=== PATIENT | female | born 1970 | race Caucasian/White ===

== ENCOUNTER 2020-07-29 09:10 | Emergency (ER) | payer BC ==
[~2020-07-29] VITALS: Ht 162.6 cm; Wt 108.9 kg
[2020-07-29] MEDS ORDERED: ULTRAM 50MG50 MG PO (10:55)
== END 2020-07-29 11:18 | disposition home or self-care (01) ==
LOC: FSED 10:00
DX: S52.132A Displaced fracture of neck of left radius, initial encounter for closed fracture (principal); W10.8XXA Fall (on) (from) other stairs and steps, initial encounter; Y93.01 Activity, walking, marching and hiking; G40.909 Epilepsy, unspecified, not intractable, without status epilepticus
CPT/HCPCS: 99283

== ENCOUNTER 2021-06-06 09:42 | Emergency (ER) | payer BC ==
[~2021-06-06] VITALS: Ht 162.6 cm; Wt 111.1 kg
[~2021-06-06 09:42] MED LIST: ULTRAM 50MG50 MG PO
[2021-06-06] MEDS ORDERED: TETANUS/DIPHTHERIA TOX ADULT 0.5 ML SYR ONE (11:52)
[2021-06-06] MEDS ORDERED: LIDOCAINE HCL 1% LOCAL INJ 20 ML VIAL ONE (11:52)
[2021-06-06] MEDS ORDERED: LIDOCAINE HCL 1% LOCAL INJ 20 ML VIAL INJ ONE (12:00)
[2021-06-06] MEDS ORDERED: TETANUS/DIPHTHERIA TOX ADULT 0.5 ML SYR IM ONE (12:00)
[2021-06-06] MEDS ORDERED: ONDANSETRON HCL 4 MG ORAL DISINTEGRATING TAB ONE (12:38)
[2021-06-06] MEDS ORDERED: NEOMYCIN/POLYMYX/BACITR OINT 0.9 GM PKT ONE (12:40)
[2021-06-06 13:10] VITALS: BP 149/78
== END 2021-06-06 13:13 | disposition home or self-care (01) ==
LOC: FSED 10:28
DX: S61.412A Laceration without foreign body of left hand, initial encounter (principal); R55 Syncope and collapse; W26.0XXA Contact with knife, initial encounter; Y92.008 Other place in unspecified non-institutional (private) residence as the place of occurrence of the external cause; I10 Essential (primary) hypertension; G40.909 Epilepsy, unspecified, not intractable, without status epilepticus
CPT/HCPCS: 12001; 90471; 90714; 99283; J2001; Q0162

== ENCOUNTER 2022-06-08 12:42 | Emergency (ER) | payer BC ==
[~2022-06-08] VITALS: Ht 165.1 cm; Wt 106.1 kg
[2022-06-08] MEDS ORDERED: METFORMIN HCL500 M2 PO (13:01)
[2022-06-08] MEDS ORDERED: VIMPAT150 MG (13:01)
[2022-06-08] MEDS ORDERED: SODIUM CHLORIDE 0.9% 1000ML 1,000 ML IV SCH (13:45)
[2022-06-08] MEDS ORDERED: SODIUM CHLORIDE 0.9% 1000ML 1,000 ML ONE (13:59)
[2022-06-08] MEDS ORDERED: IMODIUM2 MG PO (15:00)
[2022-06-08] MEDS ORDERED: IOPAMIDOL 370 MG/ML 100 ML INFUS..BTL INJ ONE (15:46)
== END 2022-06-08 15:43 | disposition home or self-care (01) ==
LOC: FSED 12:53
DX: R19.7 Diarrhea, unspecified (principal); E11.9 Type 2 diabetes mellitus without complications; I10 Essential (primary) hypertension; G40.909 Epilepsy, unspecified, not intractable, without status epilepticus; K57.90 Diverticulosis of intestine, part unspecified, without perforation or abscess without bleeding
CPT/HCPCS: 74177; 80048; 80076; 81003; 81025; 85025; 99284; J7030; Q9967